=== PATIENT | male | born 1935 | race Caucasian/White ===

== ENCOUNTER 2017-05-12 10:44 | Emergency (ER) | payer MEDICARE ==
[2017-05-12 11:18] LABS: #Eosinphils 0.1 thou/uL (0.0-0.7); #Lymphocytes 1.1 thou/uL (1.20-3.40); #Monocytes 0.4 thou/uL (0.11-0.59); #Neutrophils 4.5 thou/uL (1.40-6.50); %Basophils 0.1 % (0.0-1.0); %Eosinophils 1.7 % (0.0-10.0); %Lymphocytes 18.1 % (21.0-51.0); %Monocytes 6.3 % (0.0-10.0); %Neutrophils 73.8 % (42.0-75.0); Hemoglobin 12.6 g/dL (14.0-18.0); Mean Corpuscular HGB CONC 33.8 g/dL (32.0-36.0); Mean Corpuscular Volume 91.9 fl (80.0-94.0); Mean Platelet Volume 7.9 fL (7.4-10.4); Platelet Count 177 thou/uL (130-400); RBC Distribution Width 11.8 % (11.5-14.5); Red Blood Cell (RBC) Count 4.06 mill/uL (4.70-6.10); White Blood Cell (WBC) Count 6.1 thou/uL (4.8-10.8)
[2017-05-12 11:25] LABS: PTT 29.4 SEC (22.9-36.1); Prothrombin Time 13.2 SEC (12.0-14.7)
--- NOTE | 2017-05-12 11:27 | CT ---
NONCONTRAST ENHANCED CT BRAIN: History: Fall out of bed. Laceration. Evaluate brain. Patient also has extensive orbital trauma. Date: 05-12-17 Comparison: 02-21-13 FINDINGS: CT images demonstrate a small right frontal scalp hematoma. The left orbit along the lateral and inferior aspects demonstrates an area of hyperdensity within the left globe. This may represent intraocular hemorrhage versus post-surgical changes. Correlate with s urgical history. An area of hyperdensity seen in the left basal ganglia which is stable and unchanged since the previo us exam from likely represents an area of left basal ganglion calcification. 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 There is diffuse cortical atrophy and deep white matter ischemic changes seen. 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 IMPRESSION: 1. Area of post-surgical change versus hemorrhage within the left orbit. Findings discussed with Dr. Worrell at 11:09 a.m. on 05-12-17. Code CR POS: [facility]
[2017-05-12 11:31] LABS: ALT (SGPT) 17 U/L (8-55); AST (SGOT) 25 U/L (5-34); Albumin 4.1 g/dL (3.4-4.8); Alkaline Phosphatase 98 U/L (40-150); Anion Gap 13 mmol/L (10-20); BUN (Urea Nitrogen) 16 mg/dL (8.4-25.7); Bilirubin, Total 0.5 mg/dL (0.2-1.2); Calc. Creatinine Clearance 0 mL/min (70-130); Calcium 9.7 mg/dL (7.8-10.44); Carbon Dioxide 30 mmol/L (23-31); Chloride 99 mmol/L (98-107); Estimated GFR-MDRD 73; Globulin 2.8 g/dL (2.4-3.5); Glucose 129 mg/dL (83-110); Potassium 4.3 mmol/L (3.5-5.1); Protein, Total 6.9 g/dL (5.8-8.1); Sodium 138 mmol/L (136-145)
[2017-05-12 11:35] LABS: Troponin I 0.014 ng/mL (< 0.028)
[2017-05-12] MEDS ORDERED: Proparacaine 0.5% Opth 15 ML BOT ONE (11:40)
[2017-05-12] MEDS ORDERED: Tetracaine HCl 0.5% Ophth Soln 15 ML Bottle L EYE SCH (12:00)
--- NOTE | 2017-05-12 12:30 | CT ---
CERVICAL SPINE CT SCAN WITHOUT IV CONTRAST: History: 81-year-old male with history of fall out of bed this morning with small lacerations over the eyebrow and nose region. FINDINGS: Significant multilevel cervical spine disc osteophytosis and significant facet arthrosis with some va riable severity multilevel canal, lateral recess and foraminal stenosis. No evidence for acute fractu re or facet dislocation. Bilateral carotid artery vascular calcifications. Very tiny residual thyroid tissue, slightly more prominent on the right side. IMPRESSION: Cervical spondylosis without fracture or dislocation. POS: [facility]
--- NOTE | 2017-05-12 12:32 | CT ---
CT FACIAL BONES: Technique: Axial images were obtained with coronal and sagittal reconstruction. FINDINGS: As mentioned on the CT of the brain, an area of hypodensity seen in the left globe which may represen t intraocular hematoma versus post-surgical changes. Right frontal scalp and ===== hematoma again seen. No evidence of facial fractures seen. The paranasal sinuses are well aerated. IMPRESSION: 1. No evidence of facial fractures. 2. Findings concerning for left intraocular hemorrhage and a left periorbital hematoma. POS: [facility]
[2017-05-12] MEDS ORDERED: Adacel (T-DAP) 0.5 ML VIAL ONE (12:37)
== END 2017-05-12 14:25 | disposition home or self-care (01) ==
LOC: ERS 10:44
DX: S01.81XA Laceration without foreign body of other part of head, initial encounter (principal); H11.32 Conjunctival hemorrhage, left eye; F03.90 Unspecified dementia, unspecified severity, without behavioral disturbance, psychotic disturbance, mood disturbance, and anxiety; H05.232 Hemorrhage of left orbit; E11.9 Type 2 diabetes mellitus without complications; I25.10 Atherosclerotic heart disease of native coronary artery without angina pectoris; W06.XXXA Fall from bed, initial encounter
CPT/HCPCS: 12011; 36416; 70450; 70486; 72125; 80053; 82553; 84484; 85025; 85610; 85730; 90471; 90715; 93005